=== PATIENT | male | born 1980 | race Caucasian/White ===

== ENCOUNTER 2024-03-23 11:22 | Emergency (ER) | payer BC, SELFPAY ==
--- NOTE | ~2024-03-23 | XR_ITS ---
EXAMINATION: XR CHEST CLINICAL INFORMATION: cough COMPARISON: None available. TECHNIQUE: Frontal view of the chest was obtained. FINDINGS: Pulmonary reticular pattern. No consolidation pleural effusion or pneumothorax. No hyperinflation. Cardiomediastinal silhouette is normal in size. Osseous structures are intact. XR/XR chest 1V IMPRESSION: Consider acute small airway inflammatory disease/bronchopneumonia, right middle lung lobe in the correct clinical settings. Electronically signed by: Desmond Herbert MD 03/23/2024 03:54 PM EST
[2024-03-23 12:08] VITALS: BP 136/83; PULSE 105; RESP 20; TEMP 37.2; O2SAT 97; BMI 29.6
--- NOTE | 2024-03-23 12:11 | ED_ITS ---
HPI - General Adult General Chief complaint: General Medical Stated complaint: Dehydration Time Seen by Provider: 03/23/24 14:21 Source: patient, RN notes reviewed and old records reviewed Mode of arrival: ambulatory History of Present Illness ED Provider: Molly Menendez PA-C HPI narrative: 43-year-old male with a past medical history of recently diagnosed strep pharyngitis and bronchitis currently on Prednisone, Flonase, and Azithromycin, presenting to the ED complaining of generalized fatigue/myalgias, nausea, decreased p.o. intake, and diarrhea x few days. denies abdominal pain, vomiting, dysuria/hematuria, bloody stools, melena. + sick contacts Related Data Allergies Allergy/AdvReac Type Severity Reaction Status Date / Time No Known Allergies Allergy Verified 03/23/24 12:11 Review of Systems 2 Review of Systems: Yes all other systems are reviewed and are negative Constitutional: Constitutional: Reports as per [facility] Past Medical History Attestation statement: The following information was validated with the patient. Source: old records reviewed Social History Social History Advance Directives: No Advance Directives Information Provided: No Do you have a plan to hurt others: No Plan Physical Exam ED Vital Signs: Vital Signs - 24 hr 03/23/24 12:08 03/23/24 15:56 Temperature 99 F 98.4 F Pulse Rate 105 H 99 Respiratory Rate 20 18 Blood Pressure 136/83 134/86 Pulse Oximetry 97 96 Oxygen Delivery Method Room Air Room Air BMI result Body Mass Index 29.6 Const General: cooperative, healthy appearing and no acute distress Orientation/consciousness: patient oriented x3 Limitations: no limitations HENMT Head: Yes normal to inspection and Yes atraumatic Ears: hearing grossly normal bilaterally General nose exam: Normal external nose present Face and sinus: Yes normal facial exam Mouth: Normal oral and palatal mucosa present Throat: Yes posterior oropharynx normal, Yes tonsils normal, Yes uvula midline, No peritonsillar mass, No uvula laterally displaced and Yes uvular edema (slight) Eyes General: appearance normal, both eyes and all related structures EOM: EOMs intact bilaterally Neck Neck: Yes normal visual inspection and Yes no meningeal signs Resp Effort & Inspection: normal respiratory effort, no respiratory distress and no stridor Auscultation: clear to auscultation bilaterally, no crackles, no rales, no rhonchi and no wheezes Cardio Rate: regular rate Heart sounds: S1 normal heart sound present and S2 normal heart sound present GI Inspection: Yes normal to inspection Palpation (GI): Soft to palpation, nontender, no guarding and not rigid General: Yes no CVA tenderness Back/Spine/Pelvis Back: no CVA tenderness Skin Rashes: no rashes Wounds: no wounds Neuro General: patient oriented x3, tone normal and no meningeal signs Cranial nerves: Yes CN's II-XII intact bilaterally Gait exam (Neuro): Normal gait present Extrem General: Yes normal to inspection and Yes no pedal edema Course Course Course Narrative: This is an RME: Additional HPI, ROS, PE not included below will be deferred to primary provider. RME assessment and note performed by: Alysha Washington PA-C This is a 43-year-old male who presents to the emergency department for evaluation of ? Dehydration. Recently tested positive for strep pharyngitis, started on azithromycin. He states that he is feeling generalized weakness. Also reports diarrhea. No bloody or black stool. Plan: Labs, EKG further ER evaluation needed. -1424--no leukocytosis. Slight hyponatremia at 131 > corrected for hyperglycemia 132 -troponin negative. Slight elevation in AST/ALT -influenza a positive > 1604--hyponatremia consistent with hypovolemic hyponatremia, consistent with patient's clinical picture. Receiving IVF. XR chest 1V IMPRESSION: Consider acute small airway inflammatory disease/bronchopneumonia, right middle lung lobe in the correct clinical settings. > will add Augmentin to patient's regimen. >> patient is tolerating p.o. in the ED without difficulty. Ate Newby's. Feels comfortable for discharge home at this time. Results discussed with patient including worrisome signs and symptoms and strict return precautions, and when to return to the emergency department. They verbalized understanding and feel safe for discharge at this time. Medications Administered Discontinued Medications Generic Name Dose Route Start Last Admin Trade Name Freq PRN Reason Stop Dose Admin Sodium Chloride 1,000 mls @ 999 mls/hr 03/23/24 14:30 03/23/24 14:34 Ns IV 03/23/24 15:30 999 mls/hr .Q1H1M JULIO Administration Medical Decision Making Medical Decision Making MDM Narrative: 43-year-old male with a past medical history of recently diagnosed strep pharyngitis and bronchitis currently on Prednisone, Flonase, and Azithromycin, presenting to the ED complaining of generalized fatigue/myalgias, nausea, decreased p.o. intake, and diarrhea x few days. On exam vital signs stable, NAD, nontoxic appearing, slight uvular edema noted, uvula midline, tonsils WNL, talking in complete sentences, no respiratory distress, abdomen is soft/nontender. Concern for viral illness vs pneumonia. Rule out metabolic abnormalities. Lower suspicion for ACS/PE, acute appendicitis/diverticulitis or colitis, [employer] or retropharyngeal abscess Plan: Labs, UA, CXR, viral testing, IVF, re-evaluate Please refer to course for remaining clinical decision making, interpretation of labs/imaging results, and discussions with consultants and/or family members. Differential Diagnosis Differential Diagnoses: The differential diagnosis associated with the presentation includes As above Admission/Observation Consideration of admission/observation: Escalation of care including admission/observation considered Lab Data [facility] Lab Attestation statement: I reviewed the patient's lab results. 03/23/24 12:45 03/23/24 12:45 Labs: Lab Results 03/23/24 03/23/24 03/23/24 Range/Units 12:45 12:46 14:33 WBC 7.8 (4.8-10.8) X10*3/uL RBC 5.03 (4.60-5.80) X10*6/uL Hgb 14.1 (14.0-18.0) g/dl Hct 39.9 L (42.0-52.0) % MCV 79.3 L (80.0-98.0) fL MCH 28.0 (27.0-33.0) pg MCHC 35.3 (31.0-36.0) g/dl RDW 12.4 (11.0-16.0) % Plt Count 150 L (160-400) X10*3/uL MPV 10.3 (9.4-12.4) fL Immature Gran % (Auto) 0.8 H (0.0-0.4) % Neut % (Auto) 83.3 H (45-73) % Lymph % (Auto) 9.3 L (20-40) % [place] % (Auto) 6.6 (2-11) % Eos % (Auto) 0.0 (0-4) % Baso % (Auto) 0.0 (0-2) % Lymph # (Auto) 0.7 L (1.2-4.9) X10*3/uL [place] # (Auto) 0.5 (0.1-1.2) X10*3/uL Eos # (Auto) 0.0 (0.0-0.4) X10*3/uL Baso # (Auto) 0.0 (0.0-0.2) X10*3/uL Abs Immat Gran (auto) 0.06 H (0.00-0.03) X10*3/uL Absolute Neuts (auto) 6.5 (2.0-8.3) x10*3/uL Absolute Nucleated RBC 0.000 (0.0-0.012) X10*3/uL Nucleated RBC % (auto) 0.0 (0.0-0.2) /100WBC Sodium 131 L (135-145) mmol/L Potassium 3.7 (3.3-5.1) mmol/L Chloride 97 (96-108) mmol/L Carbon Dioxide 24 (22-29) mmol/L Anion Gap 14 (12-20) BUN 12 (9-16) mg/dL Creatinine 0.72 (0.5-1.4) mg/dL Estim Creat Clear Calc 140.0 Estimated GFR > 60 Random Glucose 148 H (60-115) mg/dL Osmolality (281-305) mosm/kg Calcium 9.0 (8.4-10.2) mg/dL Magnesium 2.0 (1.6-2.6) mg/dL Total Bilirubin 0.5 (0.0-1.0) mg/dL Direct Bilirubin 0.2 (0.0-0.5) mg/dL AST 50 H (5-37) U/L ALT 60 H (0-40) U/L Alkaline Phosphatase 63 (39-117) U/L Troponin I High Sens 3.7 (<3.5-35.0) ng/L Total Protein 8.0 (6.5-8.0) g/dL Albumin 4.5 (3.5-5.0) g/dL Lipase 26 (8-78) U/L Urine Color Yellow Urine Appearance Clear Urine pH 5.5 (5.0-9.0) Ur Specific Delton <= 1.005 (1.005-1.025) Urine Protein Negative (Neg-Trace) mg/dL Urine Glucose (UA) Negative (Negative) mg/dL Urine Ketones Negative (Negative) mg/dL Urine Blood Negative (Negative) Urine Nitrite Negative (Negative) Ur Leukocyte Esterase Negative (Negative) Urine Osmolality (373-1093) mosm/kg Ur Random Sodium mmol/L Ur Random Potassium mmol/L Ur Random Chloride mmol/L Urine Creatinine mg/dL Influenza Type A (PCR) POSITIVE A (Negative) Influenza Type B (PCR) NEGATIVE (Negative) RSV RNA Qual (PCR) NEGATIVE (Negative) SARS-CoV-2 RNA (RT-PCR) NEGATIVE (Negative) 03/23/24 Range/Units 14:38 WBC (4.8-10.8) X10*3/uL RBC (4.60-5.80) X10*6/uL Hgb (14.0-18.0) g/dl Hct (42.0-52.0) % MCV (80.0-98.0) fL MCH (27.0-33.0) pg MCHC (31.0-36.0) g/dl RDW (11.0-16.0) % Plt Count (160-400) X10*3/uL MPV (9.4-12.4) fL Immature Gran % (Auto) (0.0-0.4) % Neut % (Auto) (45-73) % Lymph % (Auto) (20-40) % [place] % (Auto) (2-11) % Eos % (Auto) (0-4) % Baso % (Auto) (0-2) % Lymph # (Auto) (1.2-4.9) X10*3/uL [place] # (Auto) (0.1-1.2) X10*3/uL Eos # (Auto) (0.0-0.4) X10*3/uL Baso # (Auto) (0.0-0.2) X10*3/uL Abs Immat Gran (auto) (0.00-0.03) X10*3/uL Absolute Neuts (auto) (2.0-8.3) x10*3/uL Absolute Nucleated RBC (0.0-0.012) X10*3/uL Nucleated RBC % (auto) (0.0-0.2) /100WBC Sodium (135-145) mmol/L Potassium (3.3-5.1) mmol/L Chloride (96-108) mmol/L Carbon Dioxide (22-29) mmol/L Anion Gap (12-20) BUN (9-16) mg/dL Creatinine (0.5-1.4) mg/dL Estim Creat Clear Calc Estimated GFR Random Glucose (60-115) mg/dL Osmolality 270 L (281-305) mosm/kg Calcium (8.4-10.2) mg/dL Magnesium (1.6-2.6) mg/dL Total Bilirubin (0.0-1.0) mg/dL Direct Bilirubin (0.0-0.5) mg/dL AST (5-37) U/L ALT (0-40) U/L Alkaline Phosphatase (39-117) U/L Troponin I High Sens (<3.5-35.0) ng/L Total Protein (6.5-8.0) g/dL Albumin (3.5-5.0) g/dL Lipase (8-78) U/L Urine Color Urine Appearance Urine pH (5.0-9.0) Ur Specific Delton (1.005-1.025) Urine Protein (Neg-Trace) mg/dL Urine Glucose (UA) (Negative) mg/dL Urine Ketones (Negative) mg/dL Urine Blood (Negative) Urine Nitrite (Negative) Ur Leukocyte Esterase (Negative) Urine Osmolality 199 L (373-1093) mosm/kg Ur Random Sodium < 20.0 mmol/L Ur Random Potassium 11.7 mmol/L Ur Random Chloride < 20.0 mmol/L Urine Creatinine 38.10 mg/dL Influenza Type A (PCR) (Negative) Influenza Type B (PCR) (Negative) RSV RNA Qual (PCR) (Negative) SARS-CoV-2 RNA (RT-PCR) (Negative) Independent Interpretation I performed an independent interpretation of an: EKG (MY INTERPRETATION EKG SINUS TACHYCARDIA RATE OF 103. VT INTERVAL 122. NO PREVIOUS EKGS TO COMPARE. NO STEMI ) and Plain X-Ray Radiology Impression Discussion of test interpretation with radiology: I have reviewed the radiologist's reading. External Record Review External record reviewed: Inpatient record, Office record, Outpatient record, Prior outpatient labs, Prior outpatient radiology, Primary care record and Outside ED record Tests considered The following testing was considered but not selected: As above Prescription Management I considered prescription management with: Pain Medication, Antiviral and Antibiotic Chronic Conditions Patient?s care impacted by: Other Social Determinants Patient?s care significantly limited by Social Determinants of Health including: Other Social Determinant of Health Discharge Plan Discharge Clinical Impression: Influenza A Patient Disposition: Home, Self-Care Instructions: Influenza (DC) Additional Instructions: You have the flu No antibiotics are indicated at this time Make sure you are staying hydrated. Drink plenty of fluids. Rest Alternate Tylenol and Motrin at home as needed for body aches and fever Follow-up with your doctor. If symptoms persist or worsen return to the emergency department *If you are a child & not tolerating liquid or urinating for more than 6 hours, or fevers are uncontrolled with medications at home, return to the emergency department* Referrals: Physician,Unknown J [Physician] - 3 days Print Language: Luxembourger
--- NOTE | 2024-03-23 12:12 | ECG_ITS ---
Test Reason : weakness Blood Pressure : */* mmHG Vent. Rate : 103 BPM Atrial Rate : 103 BPM P-R Int : 122 ms QRS Dur : 86 ms QT Int : 336 ms P-R-T Axes : 52 45 48 degrees QTcB Int : 440 ms Sinus tachycardia Otherwise normal ECG No previous ECGs available Referred By: Alysha Washington Electronically Signed By: JEN LUGO
[2024-03-23 12:49] LABS: MANUAL DIFF FLAG NO
[2024-03-23 12:52] LABS: Hematocrit 39.9 % (42.0-52.0); Hemoglobin 14.1 g/dl (14.0-18.0); Imm Gran Abs Auto 0.06 X10*3/uL (0.00-0.03); Imm Gran Pct Auto 0.8 % (0.0-0.4); Lymphocytes Absolute Auto 0.7 X10*3/uL (1.2-4.9); Lymphocytes Percent Auto 9.3 % (20-40); Mean Corpuscular HGB Conc 35.3 g/dl (31.0-36.0); Mean Corpuscular Volume 79.3 fL (80.0-98.0); Mean Platelet Volume 10.3 fL (9.4-12.4); Monocytes Absolute Auto 0.5 X10*3/uL (0.1-1.2); Monocytes Percent Auto 6.6 % (2-11); Neutrophils Absolute Auto 6.5 x10*3/uL (2.0-8.3); Neutrophils Percent Auto 83.3 % (45-73); Platelet Count 150 X10*3/uL (160-400); Red Blood Count 5.03 X10*6/uL (4.60-5.80); Red Cell Distribution Width 12.4 % (11.0-16.0); White Blood Count 7.8 X10*3/uL (4.8-10.8)
[2024-03-23 13:15] LABS: Alanine Aminotransferase 60 U/L (0-40); Albumin Level 4.5 g/dL (3.5-5.0); Alkaline Phosphatase 63 U/L (39-117); Anion Gap 14 (12-20); Aspartate Amino Transferase 50 U/L (5-37); Bilirubin Direct 0.2 mg/dL (0.0-0.5); Bilirubin Total 0.5 mg/dL (0.0-1.0); Blood Urea Nitrogen 12 mg/dL (9-16); Carbon Dioxide 24 mmol/L (22-29); Chloride 97 mmol/L (96-108); Estimated Glomerular Filt Rate > 60; Glucose Random 148 mg/dL (60-115); Lipase 26 U/L (8-78); Potassium 3.7 mmol/L (3.3-5.1); Sodium 131 mmol/L (135-145)
[2024-03-23 13:24] LABS: Troponin-I High Sensitivity 3.7 ng/L (<3.5-35.0)
[2024-03-23 13:41] LABS: Influenza A PCR POSITIVE (Negative); Influenza B PCR NEGATIVE (Negative); Resp Syncy Virus RNA Qual PCR NEGATIVE (Negative); SARS COV2 PCR INHOUSE NEGATIVE (Negative)
[2024-03-23] MEDS: 0.9 % Sodium Chloride 1,000 ML 999 ML IV (14:34)
[2024-03-23 14:50] LABS: Appearance Urine Clear; Color Urine Yellow; Glucose Urine UA Negative (Negative); Leukocyte Esterase Urine Negative (Negative); Nitrite Urine Negative (Negative); PH 5.5 (5.0-9.0); Specific Gravity - Urine <= 1.005 (1.005-1.025); Urine Blood Negative (Negative); Urine Ketones Negative (Negative); Urine Protein Negative (Neg-Trace)
[2024-03-23 15:30] LABS: Osmolality Urine 199 mosm/kg (373-1093)
[2024-03-23 15:31] LABS: Osmolality, Serum 270 mosm/kg (281-305)
[2024-03-23 15:56] VITALS: BP 134/86; PULSE 99; RESP 18; TEMP 36.9; O2SAT 96
[2024-03-23 15:58] LABS: Chloride Urine Random < 20.0 mmol/L; Potassium Urine Random 11.7 mmol/L; Sodium Urine Random < 20.0 mmol/L
--- OUTSIDE RECORDS SUMMARY | 2024-03-23 16:25 | XMS_ITS | Clinical Summary ---
Author Organization [facility] ity Address [address] [place] [address] Care Team Providers Care Recruitment Specialist Name Role Phone Ashley Acevedo MD Primary Care Provider Allergies No known active allergies Medications Medication Sig Dispensed Refills Start Date End Date Status amLODIPine-benazepril (LOTREL) 5-10 mg per capsule Take 1 capsule by mouth 1 (one) time each day. 11/24/2023 Active rosuvastatin (CRESTOR) 20 mg tablet Take 1 tablet (20 mg total) by mouth 1 (one) time each day. 11/24/2023 Active Active Problems Problem Noted Date Diagnosed Date Hypertension 10/11/2021 Immunizations Name Administration Dates Next Due Tdap Tetanus diptheria acell ular pertussis (Boostrix; Adacel) 7yo and older 05/20/2023 Medical History Medical History Date Comments Essential (primary) hypertension DX:Essential (primary) hypertension Mixed hyperlipidemia DX:Mixed hy perlipidemia Family History Medical History Relation Name Comments Heart attack Brother from [place] Hypertension Father Stroke Father Coronary artery disease Maternal Grandmother Hypertension Mother No Known Problems Sister Relation Name Status Comments Brother Father Maternal Grandfather Maternal Grandmother Mother Alive Paternal Grandfather Paternal Grandmother Sister Alive Social History Tobacco Use Types Packs/Day Years Used Date Smoking Tobacco: Never Smokeless Tobacco: Never Alcohol Use Standard Drinks/Week Comments Never 0 (1 standard drink = 0.6 oz pur e alcohol) Sex and Gender Information Value Date Recorded Sex Assigned at Not on file Gender Identity Not on file Sexual Orientation Not on file Obstetrics History Last Filed Vital Signs Vital Sign Reading Time Taken Comments Blood Pressure 110/78 11/24/2023 3:22 PM EDT Pulse 77 11/24/2023 3:22 PM EDT Temperature - - Respiratory Rate - - Oxygen Saturation - - Inhaled Oxygen Concentration - - Weight 87.5 kg (193 lb) 11/24/2023 3:22 PM EDT Height 172.7 cm (5' 8 ) 11/24/2023 3:22 PM EDT Body Mass Index 29.35 11/24/2023 3:22 PM EDT Plan of Treatment Upcoming Encounters Date Type Department Care Team (Late st Contact Info) Description 05/26/2024 3:00 PM EDT Office Visit Adult Medicine [facility] [address] [place] [address] Moisés Pozo PA [address] [place] [address] Health Maintenance Due Date Last Done Comments Hepatitis B Vaccines (1 of 3 - 19+ 3-dose series) 1997 Colorectal Cancer Screening: Colonoscopy 06/20/2022 Depression Screening 06/20/2022 HIV Screening 06/20/2022 Hepatitis C Screening 06/20/2022 Social Influencers of Health Screening 06/20/2022 COVID-19 Vaccine (3 - 2023-2 5 season) 2023 07/04/2020, 06/06/2020 Influenza Vaccine (#1) 2023 Hypertension/CHF/CAD Annual BMP Blood Test 11/05/2024 11/06/2023, 11/06/2023 Cholesterol Screening (Lipid Panel) 11/05/2028 11/06/2023, 11/06/2023 DTaP,Tdap,and Td Vaccines (2 - Td or Tdap) 05/19/2033 05/20/2023 HIB Vaccines Aged Out No longer eligi ble based on patient's age to complete this topic HPV Vaccines Aged Out No longer eligi ble based on patient's age to complete this topic Hepatitis A Vaccines Aged Out No long er eligible based on patient's age to complete this topic IPV Vaccines Aged Out No longer eligi ble based on patient's age to complete this topic MMR Vaccines Aged Out No longer eligi ble based on patient's age to complete this topic Meningococcal ACWY Vaccine Aged Out N o longer eligible based on patient's age to complete this topic Pneumococcal Vaccine: Pediatrics (0 to 5 Years) and At-Risk Patients (6 to 64 Years) Aged Out No longer eligible b ased on patient's age to complete this topic RSV Immunization Patients Under 20 months Aged Out No longer eligible b ased on patient's age to complete this topic Varicella Vaccines Aged Out No longer eligible based on patient's age to complete this topic Procedures Procedure Name Priority Date/Time Associated Diagnosis Comments ANNUAL BMP BLOOD TEST Routine 11/06/2023 LIPID PANEL Routine 11/06/2023 from Last 3 Months or Most Recently Relevant to Health Maintenance Results * Annual BMP Blood Test (11/06/2023) Annual BMP Blood Test abstracted Historical Provider [facility] E * Lipid panel (11/06/2023) LDL/HDL Ratio 3 0 - 4 Triglycerides 147 0 - 150 mg/dL Cholesterol 130 0 - 200 mg/dL HDL 45 40 mg/dL LDL Cholesterol 56 0 - 100 mg/dL Blood Venous blood specimen / Unknown Historical Provider LAB BLOOD ORDERAB LES from Last 3 Months or Most Recently Relevant to Health Maintenance Care Teams Recruitment Specialist Relationship Specialty Start Date End Date Ashley Acevedo MD PCP - General 08/15/21
[2024-03-23 16:41] VITALS: BP 134/86; PULSE 99; RESP 18; TEMP 36.9; O2SAT 96
== END 2024-03-23 16:50 | disposition home or self-care (01) ==
PROVIDERS: Physician Assistant; Physician Assistant Medical; Emergency Provider Emergency Medicine Emergency Medical Services; PCP Family Medicine
DX: J10.1 Influenza due to other identified influenza virus with other respiratory manifestations (principal); M79.10 Myalgia, unspecified site; R11.2 Nausea with vomiting, unspecified; R19.7 Diarrhea, unspecified; Z03.818 Encounter for observation for suspected exposure to other biological agents ruled out
CPT/HCPCS: 0241U; 36415; 71045; 80048; 80076; 81003; 82436; 82570; 83690; 83735; 83930; 83935; 84133; 84300; 84484; 85025; 93005; 96360; 99284

== ENCOUNTER → 2024-03-23 12:12 | Outpatient (BNV) | payer SELFPAY | PROVIDERS: Visit Provider Internal Medicine | DX: R00.0 Tachycardia, unspecified (principal) | CPT/HCPCS: 93010 ==

== ENCOUNTER → 2024-03-23 14:49 | Outpatient (BNV) | payer BC, SELFPAY | PROVIDERS: Emergency Provider Emergency Medicine Emergency Medical Services; PCP Family Medicine; Visit Provider Radiology Diagnostic Radiology | DX: R05.9 Cough, unspecified (principal) | CPT/HCPCS: 71045 ==